=== PATIENT | male | born 1985 | race Two or more races ===

== ENCOUNTER → 2019-07-15 | Outpatient (CLI) | payer OTHER ==
[~2019-07-15] VITALS: Ht 180.3 cm; Wt 130.0 kg
[~2019-07-15] MED LIST: LIDOCAINE 4% 50 ML SOLUTION TP ONE; METF-960 PO; SIMV-259 PO
[2019-07-15 10:45] VITALS: BP 136/77
== END | disposition home or self-care (01) ==
LOC: HBOWC 09:52
PROVIDERS: ATTEND Emergency Medicine
DX: E11.622 Type 2 diabetes mellitus with other skin ulcer (principal); L89.153 Pressure ulcer of sacral region, stage 3; L98.491 Non-pressure chronic ulcer of skin of other sites limited to breakdown of skin; E66.9 Obesity, unspecified; E78.5 Hyperlipidemia, unspecified
CPT/HCPCS: 11042

== ENCOUNTER → 2019-07-22 | Outpatient (CLI) | payer OTHER ==
[~2019-07-22] MED LIST changes: -LIDOCAINE 4% 50 ML SOLUTION TP ONE
[2019-07-22 08:00] VITALS: BP 111/76
== END | disposition home or self-care (01) ==
LOC: HBOWC 07:51
PROVIDERS: ATTEND Emergency Medicine
DX: E11.622 Type 2 diabetes mellitus with other skin ulcer (principal); L89.153 Pressure ulcer of sacral region, stage 3; L98.491 Non-pressure chronic ulcer of skin of other sites limited to breakdown of skin; E66.9 Obesity, unspecified; E78.5 Hyperlipidemia, unspecified
CPT/HCPCS: 11042

== ENCOUNTER → 2019-07-29 | Outpatient (CLI) | payer OTHER ==
[~2019-07-29] MED LIST changes: +LIDOCAINE 2% 5 ML JELLY ONE
[2019-07-29 08:00] VITALS: BP 116/77
== END | disposition home or self-care (01) ==
LOC: HBOWC 07:59
PROVIDERS: ATTEND Emergency Medicine
DX: E11.622 Type 2 diabetes mellitus with other skin ulcer (principal); L89.153 Pressure ulcer of sacral region, stage 3; L98.492 Non-pressure chronic ulcer of skin of other sites with fat layer exposed; E66.9 Obesity, unspecified; E78.5 Hyperlipidemia, unspecified
CPT/HCPCS: 11042

== ENCOUNTER → 2019-08-05 | Outpatient (CLI) | payer OTHER ==
[~2019-08-05] MED LIST changes: -LIDOCAINE 2% 5 ML JELLY ONE; +LIDOCAINE 2% 5 ML JELLY TP ONE
[2019-08-05 08:30] VITALS: BP 115/65
== END | disposition home or self-care (01) ==
LOC: HBOWC 07:30
PROVIDERS: ATTEND Emergency Medicine
DX: E11.622 Type 2 diabetes mellitus with other skin ulcer (principal); L89.153 Pressure ulcer of sacral region, stage 3; L98.492 Non-pressure chronic ulcer of skin of other sites with fat layer exposed; E66.9 Obesity, unspecified; E78.5 Hyperlipidemia, unspecified
CPT/HCPCS: 11042

== ENCOUNTER → 2019-08-12 | Outpatient (CLI) | payer OTHER ==
[~2019-08-12] MED LIST changes: -LIDOCAINE 2% 5 ML JELLY TP ONE
[2019-08-12 09:46] VITALS: BP 100/85
== END | disposition home or self-care (01) ==
LOC: HBOWC 09:34
PROVIDERS: ATTEND Emergency Medicine
DX: E11.622 Type 2 diabetes mellitus with other skin ulcer (principal); L89.153 Pressure ulcer of sacral region, stage 3; L98.492 Non-pressure chronic ulcer of skin of other sites with fat layer exposed; E66.9 Obesity, unspecified; E78.5 Hyperlipidemia, unspecified